=== PATIENT | female | born 1925 ===

== ENCOUNTER 2016-09-19 17:25 | Observation (INO) | payer MEDICARE ==
[2016-09-19 17:54] VITALS: BMI 24.9
--- NOTE | 2016-09-19 18:20 | ED PDOC ---
Arrival/HPI - General Historian: Patient, Family - History of Present Illness Time/Duration: Prior to Arrival Symptom Course: Unchanged <Andrew Parrish - Last Filed: 09/19/16 19:52> <JulietteIndia - Last Filed: 09/19/16 21:56> - General Chief Complaint: Shortness Of Breath Time Seen by Provider: 09/19/16 17:31 - History of Present Illness Narrative History of Present Illness (Text): 09/19/16 18:12 89 y/o female with hx afib (on coumadin), CHF, Parkinson's disease presenting with reports of shortness of breath. History is provided primarily by patient's daughter. Daughter states the patient started complaining of left ear pain today. Then later developed shortness of breath. Daughter reports patient was saying "I'm going to " repeatedly. Family denies fever, chills, cough, chest pain, diarrhea, nausea or vomiting. Daughter states patient is currently at her baseline mental status. Patient will respond to questions appropriately in Syrian using short one or 2 word responses. Daughter also reports frequent falls recently stating patient fell 2 days ago. Daughter denies significant injury or head trauma. Patient lives with her son who is her primary branch manager trainee. (Andrew Parrish) Past Medical History - Provider Review Nursing Documentation Reviewed: Yes - Past History Past History: Non-Contributing - Infectious Disease Hx of Infectious Diseases: None - Tetanus Immunization Tetanus Immunization: Unknown - Cardiac Hx Cardiac Disorders: Yes Hx Congestive Heart Failure: Yes - Pulmonary Hx Respiratory Disorders: No - Neurological Hx Neurological Disorder: Yes Hx Parkinson's Disease: Yes - HEENT Hx HEENT Disorder: Yes Hx Cataracts: Yes (had surgery 11 years ago (bilaterally)) - Renal Hx Renal Disorder: No - Endocrine/Metabolic Hx Endocrine Disorders: No - Hematological/Oncological Hx Blood Disorders: No - Integumentary Hx Dermatological Disorder: Yes (BILATERAL LE EDEMA +2WITH SPIDER VEINS) - Musculoskeletal/Rheumatological Hx Musculoskeletal Disorders: Yes Hx Falls: Yes Hx Fractures: Yes (WRIST FX) Hx Unsteady Gait: Yes (WHEELCHAIR) - Gastrointestinal Hx Gastrointestinal Disorders: No - Genitourinary/Gynecological Hx Genitourinary Disorders: No - Psychiatric Hx Psychophysiologic Disorder: No Hx Depression: No Hx Emotional Abuse: No Hx Physical Abuse: No Hx Substance Use: No - Anesthesia Hx Anesthesia: No - Suicidal Assessment Feels Threatened In Home Enviroment: No <Andrew Parrish - Last Filed: 09/19/16 19:52> Family/Social History - Physician Review Nursing Documentation Reviewed: Yes Family/Social History: Unknown Family HX Smoking Status: Never Smoked Hx Alcohol Use: No Hx Substance Use: No Hx Substance Use Treatment: No <FrancoisAndrew - Last Filed: 09/19/16 19:52> Allergies/Home Meds <FrancoisAndrew flores - Last Filed: 09/19/16 19:52> <JulietteIndia - Last Filed: 09/19/16 21:56> Allergies/Adverse Reactions: Allergies No Known Allergies Allergy (Verified 07/10/16 08:58) Home Medications: Home Meds Medication Instructions Recorded Confirmed Furosemide [Lasix] 40 mg PO BID 06/05/14 09/19/16 Digoxin 0.125 mcg PO DAILY 04/28/15 09/19/16 Potassium Chloride [K-Dur 20 mEq 1 tab PO DAILY 04/28/15 09/19/16 ER Tab] Warfarin [Coumadin] 2 mg PO 1800 05/28/15 09/19/16 Carbidopa/Levodopa 1 tab PO TID 04/17/16 09/19/16 [Carbidopa-Levodopa 25-100 Tab] Review of Systems - Physician Review All systems were reviewed & negative as marked: Yes - Review of Systems Constitutional: absent: Fevers, Night Sweats Eyes: Normal ENT: Normal, Other (left ear discomfort ). absent: Sore Throat, Rhinorrhea Respiratory: SOB. absent: Cough, Sputum, Wheezing Cardiovascular: Edema. absent: Chest Pain Gastrointestinal: absent: Abdominal Pain, Diarrhea, Nausea, Vomiting Genitourinary Female: Normal Musculoskeletal: absent: Back Pain, Neck Pain Skin: absent: Rash, Pruritis Neurological: absent: Headache, Dizziness Psychiatric: absent: Anxiety, Depression <Francois,Andrew - Last Filed: 09/19/16 19:52> Physical Exam Vital Signs Reviewed: Yes Temperature: Afebrile Blood Pressure: Normal Pulse: Regular Respiratory Rate: Normal Appearance: Positive for: Non-Toxic Mental Status: Positive for: other (resonds to questions apporporiately) - Systems Exam Head: Present: Atraumatic, Normocephalic Pupils: Present: PERRL Conjunctiva: Present: Normal Mouth: Present: Dry Neck: Present: Normal Range of Motion Respiratory/Chest: Present: Clear to Auscultation, Good Air Exchange. No: Accessory Muscle Use, Wheezes, Rales, Rhonchi Cardiovascular: Present: Normal S1, S2, Irregular Rhythm Abdomen: Present: Normal Bowel Sounds. No: Tenderness, Distention, Peritoneal Signs Upper Extremity: Present: Normal Inspection, Cyanosis. No: Edema Lower Extremity: Present: Normal Inspection. No: Edema Neurological: Present: Other (rigid extremities. resting tremor noted) Skin: Present: Warm, Dry Psychiatric: Present: Alert <Andrew Parrish - Last Filed: 09/19/16 19:52> Vital Signs Temp Pulse Resp BP Pulse Ox 09/19/16 20:30 79 18 136/70 99 09/19/16 20:29 98.8 F 09/19/16 19:55 128/74 09/19/16 17:44 96.4 F L 67 20 142/68 98 Medical Decision Making <Andrew Parrish - Last Filed: 09/19/16 19:52> - RAD Interpretation Director Motion Picture: ED Physician - EKG Interpretation Interpreted by ED Physician: Yes Type: 12 lead EKG Comparison: Similar to previous EKG <India Segovia - Last Filed: 09/19/16 21:56> ED Course and Treatment: 09/19/16 18:25 89 y/o female with hx afib, on coumadin, CHF, parkinson's presenting with respiratory distress and left ear discomfort. Patient is at baseline mental status. Due to hx Parkinson's patient is at risk of aspiration pneumonia vs CHF exacerbation - CBC - CMP - chest xray - EKG - blood cx, urine cx - UA - CT head due to recent falls while on coumadin 09/19/16 19:52 Lab results and radiology reviewed. Chest xray reveals an enlarged cardiac silhouette without significant pulmonary edema. Laboratory results reveal an elevated BNP. There is no leukocytosis. Troponin is intermediate, however patient has a hx of indeterminate levels. Will plan to admit the patient with CHF exacerbation with b/l LE edema and respiratory distress. (Andrew Parrsih) 09/19/16 21:46 Patient seen and examined with director medical economics. Patient examined at bedside by me with daughter present. Patient is at her baseline mental status as per family. She has earlier complained of left sided ear ache, severe, that has resolved. On exam, there is no facial pain on palpation, no mastoid tenderness, no angioedema or facial erythema or edema noted. Neck is supple. Family reports history of leg swelling starting three days ago. On my exam, patient with mild lower extremity edema. She has history of atrial fibrillation, rate is controlled. Chest xray with cardiomegaly, appears unchanged from previous. BNP elevated, in conjunction with leg edema, suspect component of CHF. IV lasix ordered, case d/w Dr West covering for PMD Dr. Gilmar Ozuna. Will admit to telemetry observation, consult with Dr. Almonte, her architectural project manager. With serial exams, no headache or focal neuro deficits. CT head unremarkable. Family reports recent history of frequent falls, but adamantly deny head injury. Patient taking Coumadin, no history of melena or active bleeding. Treatment plan reviewed with patient and family. Review of prior visits reveal patient with prior history of earache in past. Again no cranial nerve deficits or swelling or erythema noted. UA reviewed. Possible UTI noted. Urine culture sent. Will administer dose of IV antibiotics with admission to monitor patients INR. (India Segovia) - Lab Interpretations Lab Results: 09/19/16 18:30 09/19/16 18:30 Lab Results 09/19/16 19:15: Urine Color Yellow, Urine Appearance Sl cloudy, Urine pH 6.0, Ur Specific [place] 1.015, Urine Protein Negative, Urine Glucose (UA) Negative, Urine Ketones Negative, Urine Blood Trace-intact H, Urine Nitrate Negative, Urine Bilirubin Negative, Urine Urobilinogen 0.2, Ur Leukocyte Esterase Moderate H, Urine RBC 0 - 2, Urine WBC 10 - 15, Ur Epithelial Cells 3 - 4, Urine Bacteria Many 09/19/16 18:30: WBC 4.6, RBC 3.82, Hgb 10.4 L, Hct 33.9 L, MCV 88.7, MCH 27.2, MCHC 30.7 L, RDW 17.6 H, Plt Count 194, MPV 9.7, Gran % 61.9, Lymph % (Auto) 18.4 L, [place] % (Auto) 18.0 H, Eos % (Auto) 1.3 L, Baso % (Auto) 0.4, Gran # 2.85 , Lymph # 0.9 L, [place] # 0.8 H, Eos # 0.1, Baso # 0.02, PT 33.1 H*, INR 3.06 H, APTT 37.1 H, Sodium 133, Potassium 4.2, Chloride 93 L, Carbon Dioxide 29, Anion Gap 15, BUN 21, Creatinine 1.0, Est GFR ( Amer) > 60, Est GFR (Non-Af Amer) 52, Random Glucose 84, Calcium 9.0, Total Bilirubin 1.1, AST 39, ALT 10, Alkaline Phosphatase 89, Lactate Dehydrogenase 809 H, Total Creatine Kinase 280 H, CK-MB (CK-2) 15.9 H, CK-MB (CK-2) % 5.7 H, Troponin I 0.06, NT-Pro-B Natriuret Pep 2570 H, Total Protein 7.3, Albumin 3.8, Globulin 3.5, Albumin/ Globulin Ratio 1.1, Digoxin 1.6 - RAD Interpretation Narrative RAD Interpretations (Text): 09/19/16 21:50 cxr with cardiomegaly, no pneumothorax (India Segovia) Radiology Orders: 09/19/16 18:02 CHEST PORTABLE [RAD] Stat 09/19/16 18:05 HEAD W/O CONTRAST [CT] Stat - EKG Interpretation EKG Interpretation (Text): 09/19/16 21:49 EKG 17:40 atrial fibrillation, rate of 65, right ventricular hypertrophy, anteroseptal infaarct, age undetermined (India Segovia) - Medication Orders Current Medication Orders: Ceftriaxone Sodium (Rocephin 1 Gram Ivpb) 100 mls @ 200 mls/hr IVPB ONCE STA PRN Reason: Protocol Stop: 09/19/16 22:22 Discontinued Medications Furosemide (Lasix) 40 mg IVP ONCE ONE Stop: 09/19/16 19:44 Last Admin: 09/19/16 19:55 Dose: 40 MG MAR Blood Pressure Document 09/19/16 19:55 PRATIBHA (Rec: 09/19/16 19:55 PRATIBHA [id number]) Blood Pressure Blood Pressure (100/60-150/90 mm Hg) 128/74 IVP Administration Document 09/19/16 19:55 PRATIBHA (Rec: 09/19/16 19:55 PRATIBHA [id number]) Charges for Administration # of IVP Administrations 1 - PA / BRATTICE BUILDER / Resident Statement MD/ has reviewed & agrees with the documentation as recorded. / has examined the patient and agrees with the treatment plan. <India Segovia - Last Filed: 09/19/16 21:56> Disposition/Present on Arrival - Present on Arrival Any Indicators Present on Arrival: No History of DVT/PE: No History of Uncontrolled Diabetes: No Urinary Catheter: No History of Decub. Ulcer: No History Surgical Site Infection Following: None - Disposition Have Diagnosis and Disposition been Completed?: Yes Disposition Time: 19:55 Patient Plan: Admission <Andrew Parrish - Last Filed: 09/19/16 19:52> - Present on Arrival Any Indicators Present on Arrival: No - Disposition Have Diagnosis and Disposition been Completed?: Yes Patient Plan: Admission <India Segovia - Last Filed: 09/19/16 21:56> - Disposition Diagnosis: CHF (congestive heart failure), Earache, UTI (urinary tract infection) Disposition: HOSPITALIZED Patient Problems: Current Active Problems Problem Status Diagnosed CHF (congestive heart failure) Acute Earache Acute UTI (urinary tract infection) Acute Condition: FAIR
[2016-09-19 18:59] LABS: ADD MANUAL DIFF? NO
[2016-09-19 19:11] LABS: BASO # 0.02 [, K/mm3] (0.0-2.0); BASO % 0.4 % (0.0-3.0); EOS # 0.1 (0.0-0.7); EOS % 1.3 % (1.5-5.0); GRAN # 2.85 (1.4-6.5); GRAN % 61.9 % (50.0-68.0); HEMATOCRIT 33.9 % (36.0-48.0); LYMPH # 0.9 (1.2-3.4); LYMPH % 18.4 % (22.0-35.0); MEAN CELL VOLUME 88.7 fL (80.0-105.0); MEAN CORPUSCULAR HEMOGLOBIN 27.2 pg (25.0-35.0); MEAN CORPUSCULAR HGB CONC 30.7 g/dl (31.0-37.0); MEAN PLATELET VOLUME 9.7 fl (7.0-11.0); MONO # 0.8 (0.1-0.6); PLATELET COUNT 194 [, 10^3/uL] (120.0-450.0); RED CELL DISTRIBUTION WIDTH 17.6 % (11.5-14.5); WHITE BLOOD COUNT 4.6 [, 10^3/ul] (4.5-11.0)
[2016-09-19 19:16] LABS: ALB/GLOB RATIO 1.1 (1.1-1.8); ALKALINE PHOSPHATASE 89 U/L (38-133); ALT/SGPT 10 U/L (7-56); AST/SGOT 39 U/L (15-39); BILIRUBIN,TOTAL 1.1 mg/dL (0.2-1.3); BLOOD UREA NITROGEN 21 mg/dL (7-21); CARBON DIOXIDE 29 mmol/L (21-33); CHLORIDE 93 mmol/L (98-107); GFR AFRICAN-AMERICAN > 60; GLUCOSE,RANDOM 84 mg/dL (70-110); POTASSIUM 4.2 mmol/L (3.6-5.0); SODIUM 133 mmol/L (132-148); TOTAL PROTEIN 7.3 g/dL (5.8-8.3)
[2016-09-19 19:18] LABS: INR 3.06 (0.93-1.08); PARTIAL THROMBOPLASTIN TIME 37.1 Seconds (23.7-30.8)
[2016-09-19 19:27] LABS: TROPONIN I 0.06 ng/mL
[2016-09-19 19:34] LABS: URINE BILIRUBIN NEGATIVE (NEGATIVE); URINE BLOOD TRACE-INTACT (NEGATIVE); URINE GLUCOSE (UA) NEGATIVE (NEGATIVE); URINE KETONE NEGATIVE (NEGATIVE); URINE LEUKOCYTE ESTERASE MODERATE Leu/uL (NEGATIVE); URINE PROTEIN NEGATIVE mg/dL (<30 mg/dL); URINE UROBILINOGEN 0.2 E.U./dL (<1 E.U./dL)
[2016-09-19 19:35] LABS: URINE APPEARANCE SL CLOUDY (CLEAR); URINE COLOR YELLOW (YELLOW)
[2016-09-19 19:40] LABS: URINE BACTERIA MANY (NEG); URINE RBC 0 - 2 /hpf (0-2)
--- NOTE | 2016-09-19 20:01 | CT ---
EXAM: CT Head Without Intravenous Contrast. CLINICAL HISTORY: 89 years old, female; Injury or trauma; Fall; Initial encounter; Concussion / head injury; Additional info: Recent fall, on coumadin TECHNIQUE: Axial computed tomography images of the head/brain without intravenous contrast. This CT exam was performed using one or more of the following dose reduction techniques: automated exposure control, adjustment of the mA and/or kV according to patient size, and/or use of iterative reconstruction technique. EXAM DATE/TIME: 09/19/2016 6:05 PM COMPARISON: CT - HEAD W/O CONTRAST 02/24/2012 6:12:31 PM FINDINGS: Artifacts: Streak artifact degrades image quality. Motion artifact degrades image quality. Brain: There is dilatation of sulci gyri and ventricles. There is no midline shift. There is decreased attenuation in periventricular white matter. There are no focal masses. There are no focal hemorrhages. Segura-white differentiation is visualized. Ventricles: See above. Bones: Cranial vault is intact. Soft tissues: unremarkable Sinuses: There is no acute sinusitis. Ears and mastoids: Middle ears and mastoids are unremarkable. Orbits: Orbital contents are unremarkable. IMPRESSION: Slightly limited by streak and motion, atrophy and small vessel disease, no acute intracranial abnormality
[2016-09-19 21:32] VITALS: O2SAT 99
[2016-09-19] MEDS ORDERED: cefTRIAXone 1 gm 100 ML IVPB STA (21:53)
--- NOTE | 2016-09-20 07:59 | RAD ---
HISTORY: sob COMPARISON: 07/09/2015 FINDINGS: LUNGS: No active pulmonary disease. PLEURA: No significant pleural effusion identified, no pneumothorax apparent. CARDIOVASCULAR: Severe cardiomegaly. No congestive change. OSSEOUS STRUCTURES: No significant abnormalities. VISUALIZED UPPER ABDOMEN: Normal. OTHER FINDINGS: None. IMPRESSION: Severe cardiomegaly. No infiltrate.
[2016-09-20] MEDS ORDERED: Potassium Chloride 20 mEq ER Tab PO SCH (10:00)
[2016-09-20] MEDS: cefTRIAXone 1 gm 100 ML IVPB SCH (10:26)
[2016-09-20 10:36] LABS: ALB/GLOB RATIO 1.1 (1.1-1.8); BILIRUBIN,TOTAL 1.4 mg/dL (0.2-1.3); CALCIUM 9.2 mg/dL (8.4-10.5); TOTAL PROTEIN 7.2 g/dL (5.8-8.3)
--- NOTE | 2016-09-20 11:25 | HP ---
I know the patient very well from house calls and being in the office. I know the family very well. I am here in room 263 with the family and the patient. She is looking at me and she is smiling, a little bit distress. She is an 89-year-old white female who complained of left ear pain and shortness of breath. She was saying she was going to repeatedly. She is having breathing issues, got short of breath. They took her to the Emergency Room. She has a past medical history of AFib on Coumadin, CHF, Parkinson's. She is very weak, very limited mobility. She gets moved from the chair to bed with family helping her. She can stand, maybe pivot. That is about her baseline. She had cataract surgery. She has had bilateral swelling of lower extremities with spider veins. She has fallen. She has broken her wrist. She is basically wheelchair to bedridden, but she is comfortable right now. After giving her a dose of Lasix IV in the Emergency Room she is better, but still talking and breathing coarse breath sounds at this time. She never smoked. No alcohol, no drugs. No known drug allergies. She is on Lasix 40 twice a day, digoxin 0.125 daily, potassium 20 daily, Sinemet 25/100 one tablet 3 times a day for the Parkinson's. REVIEW OF SYSTEMS: No acute vision or hearing loss. She does respond, but slowly; that is from the Parkinson's. She is alert, she is smiling. She knows her address. She is pretty with it for 89 years of age. No throat issues. She tells me the left ear has been hurting her. It is better now, after the Rocephin in the Emergency Room. There was shortness of breath, and coughing, and some wheezing. There was also a lot of swelling in both lower extremities. No nausea, vomiting, constipation, diarrhea. No problems urinating. She is incontinent. No back pain or leg pain. She is stiff in all extremities, and can stand. It has been that way for a while. Cannot walk. No headache, no dizziness. A little anxious, not depressed. That is her baseline. She has a 98.8 temp, 79 pulse, 18 respiratory rate, 136/70 blood pressure, 99% O2 sat on room air. HEAD: Atraumatic, normocephalic. Eyes are open. Pupils equal, reactive to light, extraocular muscles are intact. Throat is moist. She is smiling. NECK: Supple. HEART: Regular rate, normal S1 and S2, irregular rhythm on and off. LUNGS: Decreased breath sounds. There are some coarse breath sounds. It sounds like rales, but changes with cough. ABDOMEN: Soft, nontender, positive bowel sounds. EXTREMITIES: Have trace edema. I understand there was edema in the Emergency Room in the extremities. That is where she gets it. I am not sure if they were giving her the Lasix twice a day. Sometimes they change the medicine around because she urinates too much, and it is possible that they held it for a few days, and that is why she swelled up. They have done that before. Cranial nerves II-XII grossly intact. She is slow to respond due to her Parkinson's. Rigid extremities. Thyroid midline, no palpable lymphadenopathy. She had multiple tests. She has a white count of 4.6, hemoglobin , hematocrit 33.9, platelets of 194. INR is 3.06. A 133 sodium, potassium is 4.2, BUN 21, creatinine 1. GFR is 52. Sugar is 84. Calcium is 9, total bili is 1.1. AST is 39, ALT is 10, alk phos is 89, lactic dehydrogenase is 809, total creatinine kinase is 280. Troponin-I of 0.06. BNP is 22,570, total protein 7.3. Urine has moderate leukocytes and many bacteria, and she has a digoxin of 1.6. Chest x-ray is pending. CAT scan of the head showed nothing acute. She is here for congestive heart failure, urinary tract infection, left ear pain. I called in Dr. Almonte, the retouching operator. He knows her. I put her back on her Lasix twice a day, but made it IV. I think she does better with IV diuresis than p.o. I am hoping she will get better quickly. She is in observation right now. I am hoping we can possibly get her discharged later today. If not , will make her an inpatient and work to get her out in the next day or two. Get her out of bed to chair, and hopefully she will improve in a short period of time. I will see what the retouching operator has to say this morning. Continue to diurese her, but she is better than yesterday in the ER. The patient is here for acute CHF, urinary tract infection, left ear pain, and also history of Parkinson's. Scotty Ozuna DO cc: [id number] TT: 09/20/2016 11:25:06 jn MTDD
--- NOTE | 2016-09-20 12:28 | CON ---
DATE: 09/20/2016 HISTORY OF PRESENT ILLNESS: The patient is an 89-year-old woman who presents with pedal edema and dy spnea. PAST MEDICAL HISTORY: Notable for documented moderate to severe pulmonary hypertension in 2013. She denies history of smoking. The patient underwent a stress test earlier this year, in which the ejection fraction was normal with no ischemic changes on nuclear scan. The patient has chronic atrial fibrillation, in which she has been treated with Coumadin. The patient denies chest pain. SOCIAL HISTORY: No smoking history. REVIEW OF SYSTEMS: A 14-point was reviewed. Dyspnea as well as pedal edema are her predominant symp toms. PHYSICAL EXAMINATION: VITAL SIGNS: Blood pressure is 160/90. The heart rate is in the 90s, atrial fibrillation. NECK: Negative JVD. LUNGS: Without rales. HEART: Revealed S1, S2. EXTREMITIES: Decreasing edema since her legs have been elevated. EKG shows poor R-wave progressions across the anterior precordium with low voltages consistent with C OPD. LABORATORIES: Reveal a troponin of 0.06. The ProBNP is 2570 with a hemoglobin of 10.4. Her chest x -ray is consistent with vascular congestion. IMPRESSION: 1. Moderate to severe pulmonary hypertension. 2. Pedal edema, secondary to pulmonary hypertension. 3. No evidence for left ventricular systolic dysfunction. 4. Atrial fibrillation with an adequate INR. Given these findings, we will repeat an echocardiogram to evaluate heart size and to remeasure her pu lmonary hypertension. I agree with Carla to help diurese her lower extremities. Linwood Almonte MD cc: [id number] TT: 09/20/2016 12:27:06 Confirmation # [id number] Dictation # [id number]
[2016-09-20] MEDS: Digoxin 125 mcg (0.125 mg) Tab PO SCH (15:24)
--- NOTE | 2016-09-20 17:57 | CARD ---
APPROVED REPORT EXAM: Two-dimensional and M-mode echocardiogram with Doppler and color Doppler. INDICATION Pulmonary Hypertention 2D DIMENSIONS Left Atrium (2D)3.5 (1.6-4.0cm)IVSd0.9 (0.7-1.1cm) LVDd4.6 (3.9-5.9cm)PWd1.3 (0.7-1.1cm) LVDs2.6 (2.5-4.0cm)FS (%) 43.0 % LVEF (%)74.2 (>50%) M-Mode DIMENSIONS Aortic Root2.90 (2.2-3.7cm)Aortic Cusp Exc.1.80 (1.5-2.0cm) Aortic Valve AoV Peak Vpaevxds159.0cm/Allison Peak GR.16mmHg Mitral Valve E/A ratio0.0 TDI E/Lateral E'0.0E/Medial E'0.0 Tricuspid Valve TR Peak [id number] [id number] Peak Gr.51mmHg [id number] LEFT VENTRICLE The left ventricle is normal size. There is normal left ventricular wall thickness. The left ventricular ejection fraction is within the normal range. There is a flattened septum RIGHT VENTRICLE The right ventricle is moderately dilated. There is normal right ventricular wall thickness. RV Systolic function is severely reduced. ATRIA The left atrium size is normal. Enormously dilated right atrium AORTIC VALVE The aortic valve is mildly sclerotic. There is mild aortic regurgitation. TRICUSPID VALVE There is severe tricuspid regurgitation. There is severe pulmonary hypertension. GREAT VESSELS The IVC is plethoric. PERICARDIAL EFFUSION There is a trace circumferential pericardial effusion. <Conclusion> The left ventricle is normal size. The left ventricular ejection fraction is within the normal range. There is a flattened septum The right ventricle is moderately dilated. RV Systolic function is severely reduced. Enormously dilated right atrium There is severe tricuspid regurgitation. There is severe pulmonary hypertension. There is mild aortic regurgitation.
--- NOTE | 2016-09-20 18:43 | CARD ---
APPROVED REPORT EKG Measurement Heart [id number] <Conclusion> Atrial fibrillation Right superior axis deviation Right ventricular hypertrophy Anteroseptal infarct, age undetermined Abnormal ECG
[2016-09-21 07:06] LABS: HEMATOCRIT 35.4 % (36.0-48.0); MEAN CELL VOLUME 89.2 fL (80.0-105.0); MEAN CORPUSCULAR HEMOGLOBIN 26.4 pg (25.0-35.0); MEAN CORPUSCULAR HGB CONC 29.7 g/dl (31.0-37.0); MEAN PLATELET VOLUME 9.9 fl (7.0-11.0); RED CELL DISTRIBUTION WIDTH 17.5 % (11.5-14.5); WHITE BLOOD COUNT 6.3 [, 10^3/ul] (4.5-11.0)
[2016-09-21 07:17] LABS: INR 2.46 (0.93-1.08)
--- NOTE | 2016-09-21 09:02 | PN ---
DATE: 09/21/2016 The patient is sitting in a chair without shortness of breath. Her predominant symptoms are dementia as well as Parkinson's. PHYSICAL EXAMINATION: VITAL SIGNS: Blood pressure is 137/85, the heart rate is in the 60s, atrial fibrillation. NECK: Negative JVD. LUNGS: Without rales. HEART: Reveals S1, S2. EXTREMITIES: Decreasing edema. LABORATORY DATA: Potassium is 5.0, BUN and creatinine is 23 and 1.2. Hemoglobin is 10.5. Echocardiogram reveals good LV function with moderate to severe pulmonary hypertension. IMPRESSION: 1. Pedal edema secondary to #2. 2. Pulmonary hypertension. 3. Parkinson's. 4. Dyspnea secondary to pulmonary hypertension. PLAN: 1. Given these findings, we will decrease her potassium dosage. 2. We will continue her Coumadin for atrial fibrillation. 3. We will decrease her Lasix to 40 once a day. No further cardiac workup is necessary at this time . Linwood Almonte MD cc: [id number] TT: 09/21/2016 09:01:01 Confirmation # [id number] Dictation # [id number] tn
[2016-09-21] MEDS: cefTRIAXone 1 gm 100 ML IVPB SCH (09:31)
[2016-09-21 12:51] VITALS: BP 138/76; PULSE 61; RESP 19; TEMP 98
[2016-09-21] MEDS: Digoxin 125 mcg (0.125 mg) Tab PO SCH (14:43)
[2016-09-21 14:48] VITALS: PULSE 61
--- NOTE | 2016-09-21 15:55 | DS ---
I saw the patient in her room with her . She is resting comfortably in bed. She ate well for breakfast. Her legs are less swollen. The is concerned about her but this is really her ba fara, he has been away for a long time on vacation, over a month. She is on Coumadin, Lanoxin, Las ix, Sinemet and Rocephin. I will change Rocephin to Cipro, that it is sensitive to on the urine. PHYSICAL EXAMINATION: VITAL SIGNS: 98.6 temp, 63 pulse, 130/68 blood pressure, 20 respiratory rate, 99% O2 sat on room air . HEENT: Head is atraumatic, normocephalic. Throat is moist. NECK: Supple. HEART: Regular rate. LUNGS: Decreased breath sounds but clear. ABDOMEN: Soft. EXTREMITIES: Mildly contracted, no edema at this time. There was edema when she came in, so today i s a good day for her to be discharged. LABORATORY DATA: She has a 6.3 white count, 10.5 hemoglobin, 35.4 hematocrit with 195 platelets. IN R is 2.46 138 sodium, potassium is 5, BUN 20, creatinine 1.2, GFR is 42. Sugar is 105. Calcium is 9 .2, total bili is 1.4, AST is 46, ALT is 88, total protein 7.2. Urine is moderate leukocytes, many b acteria. She was on Rocephin, now she will be on Cipro. Her digoxin level was 1.6. I discussed this with the at length, he understands she is going to go home and the medications she will be on. She h as pulmonary hypertension. She did have pedal edema secondary to that, Parkinson's and urinary tract infection. I will see her in week, possibly on a house call; if we cannot, bring her to the office. Scotty Ozuna DO cc: [id number] TT: 09/21/2016 15:54:29 jn
== END 2016-09-21 15:42 | disposition home or self-care (01) ==
LOC: ED 17:25 → ERH 20:09 → 2RNO 22:18
PROVIDERS: ADMIT Family Medicine; ATTEND Family Medicine
DX: I27.2 Other secondary pulmonary hypertension (principal); N39.0 Urinary tract infection, site not specified; I50.9 Heart failure, unspecified; H92.02 Otalgia, left ear; G20 Parkinson's disease; F02.80 Dementia in other diseases classified elsewhere, unspecified severity, without behavioral disturbance, psychotic disturbance, mood disturbance, and anxiety; I48.2 Chronic atrial fibrillation; Z79.01 Long term (current) use of anticoagulants; R29.6 Repeated falls
CPT/HCPCS: 36415; 70450; 71010; 80053; 80162; 81001; 82550; 82553; 83615; 83880; 84484; 85025; 85027; 85610; 85730; 87040; 87086; 87181; 93005; 93306; 96365; 96366; 96375; 99285; G0378; J0696; J1940

== ENCOUNTER 2016-10-28 08:31 | Observation (INO) | payer MEDICARE ==
[2016-10-28 08:56] VITALS: BMI 19.5
[2016-10-28 09:34] LABS: ADD MANUAL DIFF? NO
[2016-10-28 09:44] LABS: BASO # 0.04 K/mm3 (0.0-2.0); BASO % 0.6 % (0.0-3.0); EOS # 0.1 (0.0-0.7); EOS % 1.1 % (1.5-5.0); GRAN # 3.78 (1.4-6.5); GRAN % 59.3 % (50.0-68.0); HEMATOCRIT 33.6 % (36.0-48.0); LYMPH # 1.4 (1.2-3.4); MEAN CELL VOLUME 86.2 fL (80.0-105.0); MEAN CORPUSCULAR HEMOGLOBIN 26.7 pg (25.0-35.0); MEAN PLATELET VOLUME 9.4 fl (7.0-11.0); MONO # 1.1 (0.1-0.6); PLATELET COUNT 179 10^3/uL (120.0-450.0); RED CELL DISTRIBUTION WIDTH 17.3 % (11.5-14.5); WHITE BLOOD COUNT 6.4 10^3/ul (4.5-11.0)
[2016-10-28 09:52] LABS: ALB/GLOB RATIO 1.1 (1.1-1.8); BILIRUBIN,TOTAL 1.7 mg/dL (0.2-1.3); CALCIUM 9.1 mg/dL (8.4-10.5); POTASSIUM 4.8 mmol/L (3.6-5.0); TOTAL PROTEIN 7.4 g/dL (5.8-8.3)
--- NOTE | 2016-10-28 09:59 | ED PDOC ---
Arrival/HPI - General Chief Complaint: Lower Extremity Problem/Injury Time Seen by Provider: 10/28/16 09:22 Historian: Family - History of Present Illness Narrative History of Present Illness (Text): 10/28/16 09:56 89-year-old female with a history of Parkinson's, dementia, difficulty ambulating, presents emergency Department with one-week duration worsening bilateral lower extremity swelling and some dyspnea on exertion. Patient's son is a historian, states that she also has a history of heart disease and this has happened to her in the past. States that mother denies any chest pain. No other complaints. Time/Duration: 1 week Symptom Onset: Sudden Symptom Course: Unchanged Activities at Onset: Rest Modifying Factors (Text): none Context: Home Associated Symptoms (Text): none Past Medical History - Provider Review Nursing Documentation Reviewed: Yes - Past History Past History: Non-Contributing - Infectious Disease Hx of Infectious Diseases: None - Tetanus Immunization Tetanus Immunization: Unknown - Cardiac Hx Cardiac Disorders: Yes Hx Congestive Heart Failure: Yes - Pulmonary Hx Respiratory Disorders: No - Neurological Hx Neurological Disorder: Yes Hx Parkinson's Disease: Yes - HEENT Hx HEENT Disorder: Yes Hx Cataracts: Yes (had surgery 11 years ago (bilaterally)) - Renal Hx Renal Disorder: No - Endocrine/Metabolic Hx Endocrine Disorders: No - Hematological/Oncological Hx Blood Disorders: No - Integumentary Hx Dermatological Disorder: Yes (BILATERAL LE EDEMA +2WITH SPIDER VEINS) - Musculoskeletal/Rheumatological Hx Musculoskeletal Disorders: Yes Hx Falls: Yes Hx Fractures: Yes (WRIST FX) Hx Unsteady Gait: Yes (WHEELCHAIR) - Gastrointestinal Hx Gastrointestinal Disorders: No - Genitourinary/Gynecological Hx Genitourinary Disorders: No - Psychiatric Hx Psychophysiologic Disorder: No Hx Depression: No Hx Emotional Abuse: No Hx Physical Abuse: No Hx Substance Use: No - Anesthesia Hx Anesthesia: No - Suicidal Assessment Feels Threatened In Home Enviroment: No Family/Social History - Physician Review Nursing Documentation Reviewed: Yes Family/Social History: No Known Family HX Smoking Status: Never Smoked Hx Alcohol Use: No Hx Substance Use: No Hx Substance Use Treatment: No Allergies/Home Meds Allergies/Adverse Reactions: Allergies No Known Allergies Allergy (Verified 10/28/16 08:56) Home Medications: Home Meds Medication Instructions Recorded Confirmed Furosemide [Lasix] 40 mg PO BID 06/05/14 10/28/16 Digoxin 0.125 mcg PO DAILY 04/28/15 10/28/16 Potassium Chloride [K-Dur 20 mEq 1 tab PO DAILY 04/28/15 10/28/16 ER Tab] Warfarin [Coumadin] 1 mg PO 1800 05/28/15 10/28/16 Carbidopa/Levodopa 1 tab PO TID 04/17/16 10/28/16 [Carbidopa-Levodopa 25-100 Tab] Review of Systems - Physician Review All systems were reviewed & negative as marked: Yes - Review of Systems Systems not reviewed;Unavailable: Dementia Physical Exam Vital Signs Reviewed: Yes Vital Signs Temp Pulse Resp BP Pulse Ox 10/28/16 11:35 78 149/83 95 10/28/16 11:16 69 18 142/79 95 10/28/16 09:45 73 17 144/89 95 10/28/16 09:10 98.3 F 78 21 149/99 H 94 L Temperature: Afebrile Blood Pressure: Hypertensive Pulse: Regular Respiratory Rate: Normal Appearance: Positive for: Uncomfortable Pain Distress: None Mental Status: No: Agitated, Lethargic - Systems Exam Head: Present: Atraumatic, Normocephalic Pupils: Present: PERRL Extroacular Muscles: Present: EOMI Conjunctiva: Present: Normal Mouth: Present: Moist Mucous Membranes Neck: Present: Normal Range of Motion. No: Meningeal Signs, MIDLINE TENDERNESS Respiratory/Chest: Present: Clear to Auscultation, Good Air Exchange. No: Respiratory Distress, Accessory Muscle Use Cardiovascular: Present: Regular Rate and Rhythm, Normal S1, S2. No: Murmurs Abdomen: Present: Normal Bowel Sounds. No: Tenderness, Distention, Peritoneal Signs, Rebound, Guarding Back: Present: Normal Inspection Upper Extremity: Present: Other (LUE tremor). No: Cyanosis, Edema Lower Extremity: Present: Edema (b/l LE edema, no assymetry, no tenderness to palpation), Swelling. No: Tenderness Neurological: Present: GCS=15, Speech Normal, Other (no focal neurological deficits) Skin: Present: Warm, Dry, Normal Color. No: Rashes Psychiatric: Present: Alert. No: Anxious, Agitated Medical Decision Making ED Course and Treatment: Impression: 89-year-old female with bilateral lower extremity swelling and dyspnea and exertion. Patient has bilateral pedal edema on exam. Differential Diagnosis include but are not limited to: CHF versus peripheral vascular disease Plan: -- EKG -- Chest Xray -- US lower extremity vein bilat -- labs -- Lasix -- Reassess and disposition Prior Visits: Notes and results from previous visits were reviewed. Patient last seen in the ED on Progress Notes: EKG: EKG shows atrial fibrillation, irregular, rate controlled, 75 bpm. Interpreted by me. Chest xray: Creator : Carson Lira MD IMPRESSION: Severe cardiomegaly US lower extremity vein bilat: dw [facility], states neg. DVT b/l 10/28/16 11:[address] Scotty Ozuna, agrees with tele admission to his service pt's family aware of and agree with plan pt in no resp distress at this time - Lab Interpretations Lab Results: 10/28/16 09:26 10/28/16 09:26 Lab Results 10/28/16 09:26: Sodium 138, Potassium 4.8, Chloride 95 L, Carbon Dioxide 33, Anion Gap 15, BUN 30 H, Creatinine 1.3, Est GFR ( Amer) 47, Est GFR (Non- Af Amer) 39, Random Glucose 90, Calcium 9.1, Total Bilirubin 1.7 H, AST 37, ALT 30, Alkaline Phosphatase 92, Lactate Dehydrogenase 817 H, Total Creatine Kinase 226, Troponin I 0.10 D, NT-Pro-B Natriuret Pep 4140 H, Total Protein 7.4, Albumin 3.9, Globulin 3.5, Albumin/Globulin Ratio 1.1 10/28/16 09:26: PT 40.7 H*, INR 3.77 H*, APTT 40.2 H 10/28/16 09:26: WBC 6.4, RBC 3.90, Hgb 10.4 L, Hct 33.6 L, MCV 86.2, MCH 26.7, MCHC 31.0, RDW 17.3 H, Plt Count 179, MPV 9.4, Gran % 59.3, Lymph % (Auto) 22.0 , [place] % (Auto) 17.0 H, Eos % (Auto) 1.1 L, Baso % (Auto) 0.6, Gran # 3.78, Lymph # 1.4, [place] # 1.1 H, Eos # 0.1, Baso # 0.04 I have reviewed the lab results: Yes - RAD Interpretation Radiology Orders: 10/28/16 09:23 CHEST PORTABLE [RAD] Stat 10/28/16 09:24 DUPLEX LOWER EXTRM VEIN BILAT [US] Stat - EKG Interpretation Interpreted by ED Physician: Yes Type: 12 lead EKG - Medication Orders Current Medication Orders: Discontinued Medications Aspirin (Aspirin Chewable) 324 mg PO STAT STA Stop: 10/28/16 09:27 Last Admin: 10/28/16 09:48 Dose: 324 mg Furosemide (Lasix) 40 mg IVP STAT STA Stop: 10/28/16 09:27 Last Admin: 10/28/16 09:48 Dose: 40 mg Nitroglycerin (Nitrostat Sl Tab) 0.3 mg SL STAT STA Stop: 10/28/16 11:07 Last Admin: 10/28/16 11:35 Dose: 0.3 mg - Scribe Statement The provider has reviewed the documentation as recorded by the Scribe Jamaal Mei All medical record entries made by the Stefanyibtianna were at my direction and personally dictated by me. I have reviewed the chart and agree that the record accurately reflects my personal performance of the history, physical exam, medical decision making, and the department course for this patient. I have also personally directed, reviewed, and agree with the discharge instructions and disposition. Disposition/Present on Arrival - Present on Arrival Any Indicators Present on Arrival: No History of DVT/PE: No History of Uncontrolled Diabetes: No Urinary Catheter: No History of Decub. Ulcer: No History Surgical Site Infection Following: None - Disposition Have Diagnosis and Disposition been Completed?: Yes Diagnosis: CHF (congestive heart failure) Disposition: HOSPITALIZED Disposition Time: 11:39 Patient Plan: Admission Condition: FAIR Discharge Instructions (ExitCare): Heart Failure (ED) Referrals: Scotty Ozuna DO [Primary Care Provider] - Follow up with primary
[2016-10-28 10:01] LABS: PARTIAL THROMBOPLASTIN TIME 40.2 Seconds (23.7-30.8)
[2016-10-28 10:04] LABS: TROPONIN I 0.1 ng/mL
[2016-10-28 10:06] LABS: INR 3.77 (0.93-1.08)
--- NOTE | 2016-10-28 10:57 | RAD ---
HISTORY: cough COMPARISON: 09/19/2016 FINDINGS: LUNGS: No active pulmonary disease. PLEURA: No significant pleural effusion identified, no pneumothorax apparent. CARDIOVASCULAR: Severe cardiomegaly OSSEOUS STRUCTURES: No significant abnormalities. VISUALIZED UPPER ABDOMEN: Normal. OTHER FINDINGS: None. IMPRESSION: Severe cardiomegaly
--- NOTE | 2016-10-28 13:16 | HP ---
I know the patient very well from house calls and office visits. I know the family very well also. I was called down to the Emergency Room by the Emergency Room doctor. She comes in with shortness of breath and lower extremity edema, having problems with her outpatient IV Lasix. I know they are giv ing it to her. It could be a generic version, not the brand name. She is an 89-year-old female with 2-3 days of worsening lower extremity edema and also getting more s luggish and less strength. PAST MEDICAL HISTORY: CHF, Parkinson dementia and Parkinson disease, difficulty ambulating, almost b edridden. Her legs are now very swollen. She had cataracts done. She has spider veins with bilater al edema, falls, wrist fracture. She is wheelchair bound to chair bound. She has to be picked up to move from one to the other. FAMILY HISTORY: Hypertension in the family. No smoking, no drinking, no drugs. ALLERGIES: No known drug allergies. She takes Lasix, digoxin, potassium, Coumadin, and Sinemet. No acute vision or hearing changes, no apparent sore throat. There is no neck pain, no chest pain, n o palpitation, but the shortness of breath. No abdominal pain, nausea, vomiting, constipation. Ther e is edema of both lower extremities. PHYSICAL EXAMINATION: VITAL SIGNS: She has a 98.3 temp, 78 pulse, 21 respiratory rate, 149/99 blood pressure, 94% O2 sat o n room air. GENERAL: She is alert. Eyes are open. She smiled when she saw me, not talking much now. HEENT: Head is atraumatic, normocephalic. Extraocular muscles are intact. Pupils equal, reactive t o light. Throat is moist, no erythema. NECK: Supple, no JVD. HEART: Regular rate. Normal S1, S2. LUNGS: Have decreased breath sounds bilaterally, poor inspiration. EXTREMITIES: She has +2 to 3 pitting edema bilateral lower extremities with spider veins. NEUROLOGIC: GCS is 15. Speech is normal. SKIN: Intact. PSYCHIATRIC: She is alert. She has severe cardiomegaly on chest x-ray. She has a 138 sodium, potassium 4.8, BUN 30, creatinine 1.3, GFR is 39, calcium is 9.1, sugar is 90. Total bilirubin is 1.7, AST is 37, ALT is 30, alkaline phosphatase 92. Lactic dehydrogenase is 817. Troponin 0.1. BNP is 4140, extremely high. Total pro tein 7.4. INR is 3.77. We will hold the Coumadin. WBCs of 6.4, hemoglobin 10.4, hematocrit 33.6, p latelets of 179. Extremity ultrasound is pending. She will be put on IV Lasix 40 b.i.d. She will get physical therapy, digoxin, aspirin, her Sinemet. I will consult cardiology. Hopefully, she will improve and will diurese, so I put a Howell catheter in. Hopefully, she will improve with acute congestive heart failure. I will give her oxygen. The p alfreda has acute congestive heart failure. Scotty Ozuna DO cc: [id number] TT: 10/28/2016 13:16:25 en
--- NOTE | 2016-10-28 15:34 | CARD ---
APPROVED REPORT EKG Measurement Heart [id number] <Conclusion> Atrial fibrillation Right superior axis deviation Right ventricular hypertrophy Anteroseptal infarct, age undetermined Abnormal ECG
--- NOTE | 2016-10-28 16:07 | US ---
HISTORY: Leg pain and swelling. Evaluate for DVT PHYSICIAN(S): Linwood Carbone MD. TECHNIQUE: Duplex sonography and color-flow Doppler with graded compression were used to evaluate the deep venous systems of both lower extremities. The exam is somewhat limited by edema FINDINGS: The visualized deep venous systems of both lower extremities are sonographically normal and compressible. Normal wave forms and augmentation are seen. There is no sonographic evidence for deep venous thrombosis in the visualized segments of both lower extremities. IMPRESSION: No sonographic evidence for deep venous thrombosis in the visualized segments of both lower extremities.
[2016-10-28] MEDS ORDERED: Pneumococcal 23-Valent Vaccine IM ONE (16:55)
[2016-10-29 07:12] LABS: HEMATOCRIT 33.3 % (36.0-48.0); MEAN CELL VOLUME 86.5 fL (80.0-105.0); MEAN PLATELET VOLUME 9.5 fl (7.0-11.0); RED CELL DISTRIBUTION WIDTH 17.4 % (11.5-14.5); WHITE BLOOD COUNT 5.5 10^3/ul (4.5-11.0)
[2016-10-29 07:26] LABS: INR 4.81 (0.93-1.08)
[2016-10-29 07:36] LABS: ALB/GLOB RATIO 1.2 (1.1-1.8); BILIRUBIN,TOTAL 2.3 mg/dL (0.2-1.3); POTASSIUM 4.5 mmol/L (3.6-5.0); TOTAL PROTEIN 7.2 g/dL (5.8-8.3)
[2016-10-29] MEDS ORDERED: Phytonadione 10 mg/ml Inj (Adult) SC ONE (07:56)
[2016-10-29] MEDS: Potassium Chloride 20 mEq ER Tab PO SCH (09:25)
[2016-10-29] MEDS: Digoxin 125 mcg (0.125 mg) Tab PO SCH (09:25)
--- NOTE | 2016-10-29 09:45 | PN ---
DATE: 10/29/2016 She is doing so much better this morning. She is more alert. She is talking. She is looking at me. She is breathing better. No chest pain, no shortness of breath and she is hungry a little bit. She is currently on aspirin, potassium, digoxin, Lasix 40 IV b.i.d., Sinemet and I added a 1-time dos e of vitamin K. PHYSICAL EXAMINATION: VITAL SIGNS: Temp 97.6, 74 pulse and it went up as high as 107 pulse, 135/94 blood pressure, it was 147/84, 18 respiratory rate. HEAD: Atraumatic, normocephalic. THROAT: Moist. NECK: Supple. HEART: Regular rate. LUNGS: Decreased breath sounds, but clear. ABDOMEN: Soft. EXTREMITIES: Very little edema today. Yesterday, was very swollen. Today, not so bad. GENERAL: She is very alert and oriented, smiling, asking me questions in Palestinian and Frisian. She i s happy again, back to her baseline. She has a 140 sodium, potassium 4.5, BUN 32, creatinine 1.2, GFR is 42, sugar is 102, calcium is 90, total bili is 2.3, AST is 43, alkaline phosphatase is 76, ALT is 37, total protein 7.2. She has a 5. 5 white count, 10 hemoglobin, 33.3 hematocrit with 141 platelets. The INR jumped from 3.7 to 4.8 wit hout any Coumadin, so I will give her 1 dose of vitamin K today subcutaneous. We will check her labs tomorrow, get her out of bed to chair, physical therapy, see what the cardiolo gist has to add to the picture and she hopefully can go home tomorrow. That is my plan at this time depending on what physical therapy says and cardiology says. She is here for acute congestive heart failure, debility. Scotty Ozuna DO cc: [id number] TT: 10/29/2016 08:13:07 Confirmation # [id number] Dictation # [id number] en 10/29/2016 08:44:21
--- NOTE | 2016-10-29 12:32 | CON ---
DATE: 10/29/2016 HISTORY OF PRESENT ILLNESS: The patient is an 89-year-old woman who presents with dyspnea and pedal edema. PAST MEDICAL HISTORY: Notable for severe pulmonary hypertension. She has had recurrent dyspneic epi sodes in the past. In addition, the patient suffers from hypertension. No chest pain noted. She is treated with Coumadin due to her chronic atrial fibrillation. SOCIAL HISTORY: No smoking history noted. REVIEW OF SYSTEMS: A 14-point was reviewed. Other than pedal edema and dyspnea, there is no other c ardiac symptomatology. PHYSICAL EXAMINATION: VITAL SIGNS: Blood pressure is 135/94, heart rate is atrial fibrillation in the 90s. NECK: Negative JVD. LUNGS: Decreased breath sounds bilaterally. HEART: Reveals S1, S2. EXTREMITIES: 1+ edema. EKG is atrial fibrillation with nonspecific ST-T changes. Troponin 0.11. Hemoglobin is 10. IMPRESSION: 1. Severe pulmonary hypertension. 2. Right-sided congestive heart failure. 3. Pedal edema. 4. Anemia. 5. Chronic atrial fibrillation, on Coumadin. I have tried to discuss the cause of her dyspnea with the patient's . The patient herself is confused and cannot understand all issues. According to the , no aggressive measures should b e taken including possible cardiac catheterization to qualify for anti-pulmonary hypertensive medicat ions. We will continue diuretic therapy. Linwood Almonte MD cc: [id number] TT: 10/29/2016 12:32:11 Confirmation # [id number] Dictation # [id number] en
[2016-10-30 06:10] VITALS: O2SAT 90
[2016-10-30 06:25] LABS: HEMATOCRIT 34.7 % (36.0-48.0); MEAN CELL VOLUME 88.5 fL (80.0-105.0); MEAN CORPUSCULAR HEMOGLOBIN 26.3 pg (25.0-35.0); MEAN CORPUSCULAR HGB CONC 29.7 g/dl (31.0-37.0); MEAN PLATELET VOLUME 9.6 fl (7.0-11.0); RED CELL DISTRIBUTION WIDTH 17.7 % (11.5-14.5)
[2016-10-30 06:34] LABS: INR 1.73 (0.93-1.08)
[2016-10-30 06:42] LABS: ALB/GLOB RATIO 1.1 (1.1-1.8); POTASSIUM 4.3 mmol/L (3.6-5.0); TOTAL PROTEIN 7.4 g/dL (5.8-8.3)
--- NOTE | 2016-10-30 08:51 | PN ---
DATE: 10/30/2016 The patient is in bed, without obvious dyspnea at rest. PHYSICAL EXAMINATION: VITAL SIGNS: The blood pressure is 146/73. Heart rate is atrial fibrillation, in the 70s. NECK: Negative JVD. LUNGS: Decreased breath sounds bilaterally. HEART: Reveals S1, S2. EXTREMITIES: Decreasing edema in lower extremities. LABORATORIES: Hemoglobin is 10.3. Chemistries: BUN and creatinine are 41 and 1.4. IMPRESSION: 1. Chronic atrial fibrillation. 2. Right-sided congestive heart failure. 3. Severe pulmonary hypertension. 4. Chronic atrial fibrillation. Given these findings, the Coumadin level is currently approaching therapeutic levels. Her atrial fibrillation heart rate is well controlled. Will continue diuretic therapy, however, the patient becoming somewhat prerenal. Will change her IV Lasix to p.o. Lasix. Linwood Almonte MD cc: [facility] TT: 10/30/2016 08:50:03 Confirmation # [id number] Dictation # [id number] mn
[2016-10-30] MEDS: Digoxin 125 mcg (0.125 mg) Tab PO SCH (09:33)
[2016-10-30] MEDS: Potassium Chloride 20 mEq ER Tab PO SCH (09:33)
[2016-10-30 09:34] VITALS: PULSE 64
--- NOTE | 2016-10-30 10:58 | DS ---
I see the patient resting comfortably in bed. She is much less swollen. She was diuresed very nicely. She is alert. She is talking. She is eating some. She is pleasantly confused. There is a little bit of blood in the Howell catheter. She is not used to having a catheter at home and I think that with the elevated INR, it was a little bit traumatic and that is why there is a little bit of blood, but will remove the catheter. Hemoglobin is still stable. PHYSICAL EXAMINATION: VITAL SIGNS: 97.6 temp, 76 pulse, 146/70 blood pressure, 19 respiratory rate, 94% O2 sat on room air. HEENT: Head is atraumatic, normocephalic. Throat is moist. NECK: Supple. HEART: Regular rate. LUNGS: Decreased breath sounds but clear. ABDOMEN: Soft. EXTREMITIES: No edema, much better than when she came in. She was 3 to 4+, now she is down to trace if any, and there is a little bit of Punch urine, which is probably from pulling on the catheter. Will remove the catheter today. INR was elevated, but it is coming down since we held the Coumadin. She is here for severe pulmonary hypertension, congestive heart failure, edema, anemia and AFib, which is chronic. MEDICATIONS: She is going to go home on potassium 20 daily, Lasix 40 twice a day, digoxin 0.125 daily, Sinemet, carbidopa 25/100 one tablet 3 times a day, and instead of being on Coumadin 1 mg a day, she will go on 0.5 mg a day. LABORATORY DATA: Today are 143 sodium, potassium 4.3, BUN 41, creatinine 1.4. GFR is 35. Sugar is 102, calcium is 9, total bili is 3, AST is 4, ALT is 28, alkaline phosphatase is 75, total protein 7.4. White count 7, hemoglobin 10.3, hematocrit 24.7, platelets 145. INR is down to 1.73, it was as high as 4.81. I will restart the Coumadin at 0.5 mg as opposed to 1 mg. Liver enzymes are a little bit elevated. We will follow them on the outpatient. I will do blood tests in a week on her. The will call for a house call or bring her to the office. I think as far as her congestive heart failure and the pulmonary hypertension, that improved greatly and will see her on the outside. It is better to get her out of the hospital than keep her here. Scotty Ozuna DO cc: [id number] TT: 10/30/2016 10:58:22 ping AYALA
[2016-10-30 12:20] VITALS: BP 132/75; PULSE 103; RESP 20; TEMP 97.8
== END 2016-10-30 16:39 | disposition home or self-care (01) ==
LOC: ED 08:31 → INTOOBSV 11:39 → ERH 11:39 → 2RSO 14:24 → 2RNO 20:23
PROVIDERS: ADMIT Family Medicine; ATTEND Family Medicine
DX: I11.0 Hypertensive heart disease with heart failure (principal); I50.9 Heart failure, unspecified; I27.2 Other secondary pulmonary hypertension; G20 Parkinson's disease; F02.80 Dementia in other diseases classified elsewhere, unspecified severity, without behavioral disturbance, psychotic disturbance, mood disturbance, and anxiety; I48.2 Chronic atrial fibrillation; Z79.01 Long term (current) use of anticoagulants; D64.9 Anemia, unspecified; R53.81 Other malaise; Z99.3 Dependence on wheelchair; Z82.49 Family history of ischemic heart disease and other diseases of the circulatory system
CPT/HCPCS: 36415; 71010; 80053; 82550; 83615; 83880; 84484; 85025; 85027; 85610; 85730; 93005; 93970; 96374; 99285; G0378; J1940; J3430

== ENCOUNTER 2017-03-04 20:50 | Observation (INO) | payer MEDICARE, OTHER ==
[2017-03-04 20:51] VITALS: PULSE 64
[2017-03-04 21:15] VITALS: BMI 16.7
--- NOTE | 2017-03-04 21:45 | ED PDOC ---
Arrival/HPI <Dragan Farrell - Last Filed: 03/05/17 01:06> - General Historian: Patient, Family (son), Caregiver (son) <Jovany Sanchez - Last Filed: 03/06/17 21:43> - General Chief Complaint: Shortness Of Breath Time Seen by Provider: 03/04/17 21:26 - History of Present Illness Narrative History of Present Illness (Text): 03/04/17 21:45 89 year old with PMH of hx afib (on coumadin), CHF, Parkinson's disease presenting with reports of shortness of breath. The history was primarily given by her son who is the primary animal care worker. Patient begin to complain of SOB around 8:30pm while sitting on the couch. The patient had been feeling normal all day prior to the episode of SOB. Patient has a hx of CHF so patient's son wanted to make sure there was nothing more urgent occurring at this time. Patient states she has no other complaints other than SOB at this time. Denies f /c, rhinorrhea, sore throat, cough, cp, n/v, d/c, numbness or tingling. (Jovany Sanchez) Past Medical History - Provider Review Nursing Documentation Reviewed: Yes - Past History Past History: Non-Contributing - Infectious Disease Hx of Infectious Diseases: None - Tetanus Immunization Tetanus Immunization: Unknown - Cardiac Hx Cardiac Disorders: Yes Hx Cardiac Arrhythmia: Yes (AFIB) Hx Congestive Heart Failure: Yes - Pulmonary Hx Respiratory Disorders: No - Neurological Hx Neurological Disorder: Yes Hx Parkinson's Disease: Yes (TREMORS) - HEENT Hx HEENT Disorder: Yes Hx Cataracts: Yes (had surgery 11 years ago (bilaterally)) - Renal Hx Renal Disorder: No - Endocrine/Metabolic Hx Endocrine Disorders: No - Hematological/Oncological Hx Blood Disorders: No - Integumentary Hx Dermatological Disorder: Yes (BILATERAL LE EDEMA +2WITH SPIDER VEINS) - Musculoskeletal/Rheumatological Hx Musculoskeletal Disorders: Yes Hx Falls: Yes Hx Fractures: Yes (WRIST FX) Hx Unsteady Gait: Yes (WHEELCHAIR) - Gastrointestinal Hx Gastrointestinal Disorders: No - Genitourinary/Gynecological Hx Genitourinary Disorders: Yes Hx Incontinence: Yes - Psychiatric Hx Psychophysiologic Disorder: No Hx Depression: No Hx Emotional Abuse: No Hx Physical Abuse: No Hx Substance Use: No - Anesthesia Hx Anesthesia: No - Suicidal Assessment Feels Threatened In Home Enviroment: No <Jovany Sanchez - Last Filed: 03/06/17 21:43> Family/Social History - Physician Review Nursing Documentation Reviewed: Yes Family/Social History: Unknown Family HX Smoking Status: Never Smoked Hx Alcohol Use: No Hx Substance Use: No Hx Substance Use Treatment: No <Jovany Sanchez - Last Filed: 03/06/17 21:43> Allergies/Home Meds <Dragan Farrell - Last Filed: 03/05/17 01:06> <Jovany Sanchez - Last Filed: 03/06/17 21:43> Allergies/Adverse Reactions: Allergies No Known Allergies Allergy (Verified 03/04/17 21:15) Home Medications: Home Meds Medication Instructions Recorded Confirmed Furosemide [Lasix] 40 mg PO BID 06/05/14 03/04/17 Digoxin 0.125 mcg PO DAILY 04/28/15 03/04/17 Warfarin [Coumadin] 0.5 mg PO 1800 05/28/15 03/04/17 Carbidopa/Levodopa 1 tab PO TID 04/17/16 03/04/17 [Carbidopa-Levodopa 25-100 Tab] Potassium Chloride [Klor-Con M20] 20 meq PO DAILY 03/04/17 03/04/17 Review of Systems - Physician Review All systems were reviewed & negative as marked: Yes - Review of Systems Constitutional: Normal. absent: Fatigue, Fevers Eyes: Normal. absent: Vision Changes ENT: Normal. absent: Sore Throat, Rhinorrhea Respiratory: SOB Cardiovascular: Normal. absent: Chest Pain, Palpitations, Edema, Syncope Gastrointestinal: Normal. absent: Abdominal Pain, Constipation, Diarrhea, Nausea, Vomiting Genitourinary Female: Normal Musculoskeletal: Normal Skin: Normal. absent: Rash Neurological: Normal Psychiatric: Normal <Jovany Sanchez - Last Filed: 03/06/17 21:43> Physical Exam Vital Signs Reviewed: Yes Temperature: Other Blood Pressure: Hypotensive Pulse: Bradycardic Respiratory Rate: Normal Appearance: Positive for: Non-Toxic, Comfortable, Cachectic Pain Distress: None Mental Status: Positive for: Alert and Oriented X 3 - Systems Exam Head: Present: Atraumatic, Normocephalic Pupils: Present: PERRL Extroacular Muscles: Present: EOMI Conjunctiva: Present: Normal Mouth: Present: Moist Mucous Membranes Nose (External): Present: Atraumatic, Abrasion Nose (Internal): Present: Normal Inspection Neck: Present: Normal Range of Motion. No: Meningeal Signs, MIDLINE TENDERNESS , JVD, Lymphadenopathy Respiratory/Chest: Present: Clear to Auscultation. No: Respiratory Distress, Accessory Muscle Use, Wheezes, Rales, Rhonchi, Tachypneic Cardiovascular: Present: Normal S1, S2, Irregular Rhythm (hx of afib), Peripheal Pulses Present Abdomen: Present: Tenderness, Normal Bowel Sounds. No: Distention, Peritoneal Signs, Guarding Back: Present: Normal Inspection. No: Midline Tenderness, Paraspinal Tenderness Upper Extremity: Present: Normal Inspection, NORMAL PULSES. No: Edema Lower Extremity: Present: Normal Inspection, NORMAL PULSES. No: Edema, CALF TENDERNESS Neurological: Present: GCS=15 Lymphatic: No: Cervical Adenopathy Psychiatric: Present: Alert, Lethargic (asleep during majority of exam) <Jovany Sanchez - Last Filed: 03/06/17 21:43> Vital Signs Temp Pulse Resp BP Pulse Ox 03/05/17 02:48 17 96 03/05/17 02:38 51 L 17 118/79 97 03/05/17 00:57 50 L 17 129/88 18 L 03/04/17 21:50 16 99 03/04/17 21:27 97.6 F 74 15 105/49 L 96 03/04/17 21:15 51 L 16 105/49 L 95 Medical Decision Making <Dragan Farrell - Last Filed: 03/05/17 01:06> - Lab Interpretations I have reviewed the lab results: Yes <Jovany Sanchez - Last Filed: 03/06/17 21:43> ED Course and Treatment: Patient seen and evaluated with resident. Agree with HPI, clinical findings, plan and treatment. Patient is a 89 year old female, who presents to the emergency department complaining of shortness of breath since 8:30pm today. Case discussed with who is aware and agrees with the plan to observe patient at telemetry for CHF. Accepts patient under his service with Dr. Almonte on cardiology consult. (Dragan Farrell) 03/04/17 23:39 SOB - hx of CHF - CXR - cardiomegaly, otherwise normal - EKG - Afib with slow ventricular response @ 53bpm, Q waves in Leads I, II, III, aVL, aVF, V3-V6, unchanged from previous EKG - Prior ECHO on 09/20/16 - normal LVEF >50%, RV systolic function severely reduced, dilated R atrium, severe TR, severe Pulm HTN, mild AR. - CBC - WNL - baseline anemia 10.1 - CMP - WNL - Trop - 0.06 - baseline - BNP - 2780 - INR - sub-therapeutic @ 1.14 DISPO: Admit to telemetry for CHF exacerbation. Patient is admitted to Dr. Ozuna's service. (Jovany Sanchez) - Lab Interpretations Lab Results: 03/04/17 22:35 03/04/17 22:35 Lab Results 03/04/17 22:35: PT 12.3 H, INR 1.14 H, APTT 27.2 03/04/17 22:35: WBC 5.0 D, RBC 3.34 L, Hgb 10.1 L, Hct 31.9 L, MCV 95.5, MCH 30.2, MCHC 31.7, RDW 17.9 H, Plt Count 187, MPV 9.6, Gran % 53.1, Lymph % (Auto ) 28.2, Amador % (Auto) 16.7 H, Eos % (Auto) 1.4 L, Baso % (Auto) 0.6, Gran # 2.63 , Lymph # 1.4, Amador # 0.8 H, Eos # 0.1, Baso # 0.03 03/04/17 22:35: Sodium 138, Potassium 4.3, Chloride 99, Carbon Dioxide 30, Anion Gap 13, BUN 20, Creatinine 0.9, Est GFR ( Amer) > 60, Est GFR (Non- Af Amer) 59, Random Glucose 72, Calcium 8.9, Total Bilirubin 1.6 H, AST 27, ALT 17, Alkaline Phosphatase 69, Lactate Dehydrogenase 566, Total Creatine Kinase 106, Troponin I 0.06 D, NT-Pro-B Natriuret Pep 2780 H, Total Protein 6.4, Albumin 3.7, Globulin 2.7, Albumin/Globulin Ratio 1.4 - RAD Interpretation Radiology Orders: 03/04/17 21:48 CXR [CHEST PORTABLE] [RAD] Stat - Medication Orders Current Medication Orders: Discontinued Medications Carbidopa/Levodopa (Sinemet) 1 tab PO TID [facility] Last Admin: 03/05/17 17:43 Dose: 1 tab Digoxin (Lanoxin) 0.125 mg PO 1400 [facility] Last Admin: 03/05/17 14:24 Dose: Furosemide (Lasix) 40 mg IVP STAT STA Stop: 03/05/17 00:13 Last Admin: 03/05/17 00:57 Dose: 40 mg Furosemide (Lasix) 40 mg IVP Q12 [facility] Last Admin: 03/05/17 22:02 Dose: 40 mg Potassium Chloride (K-Dur 20 Meq Er Tab) 20 meq PO DAILY [facility] Last Admin: 03/05/17 09:11 Dose: 20 meq Warfarin Sodium (Coumadin) 0.5 mg PO 1800 [facility] PRN Reason: Protocol Warfarin Sodium (Coumadin) 0.5 mg PO 1800 [facility] Last Admin: 03/05/17 17:43 Dose: 0.5 mg Warfarin Sodium (Coumadin) 1 mg PO 1800 [facility] - PA / PLASTICS FABRICATOR / Resident Statement / has reviewed & agrees with the documentation as recorded. / has examined the patient and agrees with the treatment plan. <Dragan Farrell - Last Filed: 03/05/17 01:06> Disposition/Present on Arrival <Dragan Farrell - Last Filed: 03/05/17 01:06> - Present on Arrival Any Indicators Present on Arrival: No History of DVT/PE: No History of Uncontrolled Diabetes: No Urinary Catheter: No History of Decub. Ulcer: No History Surgical Site Infection Following: None - Disposition Have Diagnosis and Disposition been Completed?: Yes Disposition Time: 01:10 Patient Plan: Admission <Jovany Sanchez - Last Filed: 03/06/17 21:43> - Disposition Diagnosis: CHF exacerbation Disposition: HOSPITALIZED Condition: FAIR
[2017-03-04 22:59] LABS: BASO # 0.03 K/mm3 (0.0-2.0); BASO % 0.6 % (0.0-3.0); EOS # 0.1 (0.0-0.7); EOS % 1.4 % (1.5-5.0); GRAN # 2.63 (1.4-6.5); GRAN % 53.1 % (50.0-68.0); HEMATOCRIT 31.9 % (36.0-48.0); LYMPH # 1.4 (1.2-3.4); LYMPH % 28.2 % (22.0-35.0); MEAN CELL VOLUME 95.5 fl (80.0-105.0); MEAN CORPUSCULAR HEMOGLOBIN 30.2 pg (25.0-35.0); MEAN CORPUSCULAR HGB CONC 31.7 g/dl (31.0-37.0); MEAN PLATELET VOLUME 9.6 fl (7.0-11.0); MONO # 0.8 (0.1-0.6); MONO % 16.7 % (1.0-6.0); RED CELL DISTRIBUTION WIDTH 17.9 % (11.5-14.5)
[2017-03-04 23:07] LABS: INR 1.14 (0.93-1.08); PARTIAL THROMBOPLASTIN TIME 27.2 Seconds (23.7-30.8)
[2017-03-04 23:13] LABS: ALB/GLOB RATIO 1.4 (1.1-1.8); ALKALINE PHOSPHATASE 69 U/L (38-126); ALT/SGPT 17 U/L (7-56); AST/SGOT 27 U/L (14-36); BILIRUBIN,TOTAL 1.6 mg/dL (0.2-1.3); BLOOD UREA NITROGEN 20 mg/dL (7-21); CALCIUM 8.9 mg/dL (8.4-10.5); CARBON DIOXIDE 30 mmol/L (21-33); CHLORIDE 99 mmol/L (98-107); GFR AFRICAN-AMERICAN > 60; GLUCOSE,RANDOM 72 mg/dL (70-110); POTASSIUM 4.3 mmol/L (3.6-5.0); SODIUM 138 mmol/L (132-148); TOTAL PROTEIN 6.4 g/dL (5.8-8.3)
[2017-03-04 23:25] LABS: TROPONIN I 0.06 ng/mL
--- NOTE | 2017-03-05 09:26 | RAD ---
HISTORY: sob COMPARISON: 10/28/2016 FINDINGS: LUNGS: No active pulmonary disease. PLEURA: No significant pleural effusion identified, no pneumothorax apparent. CARDIOVASCULAR: There is severe cardiomegaly. There is no evidence of CHF. OSSEOUS STRUCTURES: No significant abnormalities. VISUALIZED UPPER ABDOMEN: Normal. OTHER FINDINGS: None. IMPRESSION: Severe cardiomegaly unchanged. No acute findings
[2017-03-05] MEDS ORDERED: Digoxin 125 mcg (0.125 mg) Tab PO SCH ×2 (10:00→14:00)
[2017-03-05] MEDS ORDERED: Potassium Chloride 20 mEq ER Tab PO SCH (10:00)
--- NOTE | 2017-03-05 15:18 | CON ---
DATE: 03/05/2017 HISTORY OF PRESENT ILLNESS: The patient is a 89-year-old woman who presents with dyspnea. Her the past medical history includes history of atrial fibrillation. Her last cardiac evaluation was earlier this year where her ejection fraction was found to be 74%. She was noted to have severe pulmonary hypertension with mild aortic insufficiency. She also suffers from atrial fibrillation in which she has been treated with Coumadin. Her noncardiac issues include Alzheimer's. Currently, the patient is not short of breath and is eating without issues. Social history and review of systems are not available. PHYSICAL EXAMINATION: VITAL SIGNS: Blood pressure is 146/70, heart rate in the 50s, atrial fibrillation. NECK: Negative JVD. LUNGS: Decreased breath sounds bilaterally. HEART: Reveal S1 and S2 with 2/6 systolic ejection murmur. EXTREMITIES: Without change. EKG shows atrial fibrillation with nonspecific ST-T changes. The troponin is 0.06 which is unchanged from her previous. BUN and creatinine unremarkable. The hemoglobin is 10.1. ASSESSMENT: 1. Dyspnea. 2. Mild acute systolic congestive heart failure. 3. Severe pulmonary hypertension. 4. Anemia. 5. Dementia. 6. Atrial fibrillation. PLAN: Given these findings, the patient is hemodynamically better on IV Lasix. Her shortness of breath is predominantly from her severe pulmonary hypertension. Linwood Almonte MD
--- NOTE | 2017-03-05 15:40 | PN ---
DATE: SUBJECTIVE: I know Vero well from house calls and also office visits; actually I saw her yesterday in my office. She looked fantastic, the best I have seen her in long time. Her takes good care of her. I do believe she is getting Lasix. She is an 89-year-old female, who presented with shortness of breath while sitting on a couch. Otherwise, she ate breakfast and was doing fell. I took her to the emergency room and she ended up being in the intensive care unit. PAST MEDICAL HISTORY: She has a past medical history of atrial fibrillation, CHF, and Parkinson's disease. She is comfortable right now in bed in the intensive care unit. She does have tremors. She had cataract surgeries. She gets edema and spider veins, but no edema yesterday and no edema this morning from the Lasix. She does have a history of falls. She has picked up going from bed to wheelchair. She had a fracture of the wrist. She is mostly wheelchair-bound, but can walk a little bit with help. She is incontinent. FAMILY HISTORY: There is hypertension in the family. SOCIAL HISTORY: Never smoked. No alcohol. No drugs. ALLERGIES: NO KNOWN DRUG ALLERGIES. MEDICATIONS: She takes Lasix, digoxin, Coumadin, Sinemet, and potassium. REVIEW OF SYSTEMS: No acute vision or hearing changes. No sore throat. No neck pain. No chest pain or palpitations. No abdominal pain. No nausea, vomiting, constipation, or diarrhea. There was a questionable shortness of breath. Right now she is better. No abdominal pain. Skin for the most part is intact, it is very, weak, thin. No edema at this time. She is alert, smiling, and that is her baseline. She does speak, but it is very slow, it is hard to get started. PHYSICAL EXAMINATION: GENERAL: She is alert, talking, back to her baseline. No shortness of breath. No chest pain. VITAL SIGNS: She has a 97.6 temperature, 58 pulse irregular, 131/59 blood pressure, 16 respiratory rate, and 94% O2 sat on room air. HEENT: Head is atraumatic, normocephalic. Pupils are equal and reactive to light and accommodation. Extraocular muscles are intact. Throat is moist. NECK: Supple. HEART: Irregular rate with a 2/6 systolic ejection murmur. LUNGS: Decreased breath sounds bilaterally, but clear to auscultation. No wheezes, no rhonchi, no rales. ABDOMEN: Soft and nontender. Positive bowel sounds. EXTREMITIES: With no edema, which is very good for her. NEUROLOGIC: GCS of 15. Cranial nerves grossly intact II through XII. She is alert and smiling and that is her baseline, talks a little bit of [place] with the . LABORATORY DATA: She had a blood test done, 5 white count, 10.1 hemoglobin, 31.9 hematocrit with 187 platelets. INR is 1.14, we will give her the Coumadin. She has 138 sodium, potassium 4.3, BUN 20, creatinine 0.9, GFR is greater than 60, sugars 69, and calcium 8.9. Total bilirubin is 1.6. AST is 27, ALT 17, alkaline phosphatase 69, total protein is 6.4. BNP was high at 2780. Troponin I was 0.16 and total protein 6.4. PLAN: She has a consult with Dr. Almonte of Cardiology. She will be on Lasix 40 mg IV b.i.d. I am hoping that by tomorrow she will be able to be discharged and I might change it to an observation tomorrow, if he is very well and also physical therapy will be involved. She is here for shortness of breath most probably, CHF, shortness of breath on top of Parkinson's, atrial fibrillation, and also she is 89 years of age. Scotty Ozuna DO MTDD
--- NOTE | 2017-03-05 17:55 | CARD ---
APPROVED REPORT EKG Measurement Heart [id number] <Conclusion> Atrial fibrillation with slow ventricular response Possible Right ventricular hypertrophy Inferior infarct, age undetermined Anterolateral infarct, age undetermined Abnormal ECG
[2017-03-06 06:53] VITALS: BP 131/42; PULSE 57; RESP 20; TEMP 98.3; O2SAT 94
[2017-03-06 07:21] LABS: INR 1.19 (0.93-1.08)
[2017-03-06 07:23] LABS: HEMATOCRIT 37.2 % (36.0-48.0); MEAN CELL VOLUME 95.9 fl (80.0-105.0); MEAN CORPUSCULAR HEMOGLOBIN 30.4 pg (25.0-35.0); MEAN CORPUSCULAR HGB CONC 31.7 g/dl (31.0-37.0); MEAN PLATELET VOLUME 9.4 fl (7.0-11.0); RED CELL DISTRIBUTION WIDTH 17.6 % (11.5-14.5); WHITE BLOOD COUNT 5.8 10^3/ul (4.5-11.0)
[2017-03-06 07:40] LABS: ALB/GLOB RATIO 1.3 (1.1-1.8); ALKALINE PHOSPHATASE 66 U/L (38-126); ALT/SGPT 23 U/L (7-56); AST/SGOT 26 U/L (14-36); BILIRUBIN,TOTAL 1.9 mg/dL (0.2-1.3); BLOOD UREA NITROGEN 21 mg/dL (7-21); CALCIUM 8.9 mg/dL (8.4-10.5); CARBON DIOXIDE 35 mmol/L (21-33); CHLORIDE 100 mmol/L (98-107); GFR AFRICAN-AMERICAN > 60; GLUCOSE,RANDOM 96 mg/dL (70-110); POTASSIUM 3.5 mmol/L (3.6-5.0); SODIUM 143 mmol/L (132-148)
--- NOTE | 2017-03-06 13:27 | DS ---
HISTORY OF PRESENT ILLNESS: She is doing very well for the past 24 hours, and she is no short of breath, no chest pain, no abdominal pain. She is awake. She is eating. Seen with family this morning in the intensive care unit, and she will be discharged today. She is on observation. She is on Coumadin, potassium, Lanoxin, Lasix and Sinemet. She will go on the same medications. PHYSICAL EXAMINATION: VITAL SIGNS: 98.3 temperature, 67 pulse, 131/42 blood pressure, 20 respiratory rate, 94% to 96% O2 saturation on room air. HEENT: Head is atraumatic and normocephalic. Throat is moist. GENERAL: She is alert, talking to me, pleasant, smiling, no complaints. NECK: Supple. HEART: Regular rate. LUNGS: Decreased breath sounds, but clear to auscultation. ABDOMEN: Soft. EXTREMITIES: No edema. LABORATORY DATA: Today, she has a 5.8 white count, 11.8 hemoglobin, 37.2 hematocrit, 202 platelets. INR is 1.19, we increased the Coumadin. We will follow that in the outpatient. Sodium is 143, potassium is 3.5, potassium today, BUN 21, creatinine 0.9. GFR is 69. Sugar is 96, calcium is 8.9, total bili is 1.98, AST is 26, ALT is 23, alkaline phosphatase is 56, total protein is 7. MEDICATIONS: Coumadin 0.5, I will increase it to 1 mg a day. She will be on the potassium, digoxin, Lasix, and Sinemet. I will write prescriptions for her. She will be followed up in the outpatient in the office at a week. She was here for dyspnea, mild congestive heart failure, severe pulmonary hypertension and anemia. Scotty Ozuna DO MTDLow
== END 2017-03-06 11:05 | disposition home or self-care (01) ==
LOC: ED 20:50 → ERH 03-05 01:03 → CCU 03-05 03:36
PROVIDERS: ADMIT Family Medicine; ATTEND Family Medicine
DX: I50.21 Acute systolic (congestive) heart failure (principal); I27.2 Other secondary pulmonary hypertension; D64.9 Anemia, unspecified; I48.91 Unspecified atrial fibrillation; G20 Parkinson's disease; G30.9 Alzheimer's disease, unspecified; F02.80 Dementia in other diseases classified elsewhere, unspecified severity, without behavioral disturbance, psychotic disturbance, mood disturbance, and anxiety; I35.1 Nonrheumatic aortic (valve) insufficiency; R32 Unspecified urinary incontinence; Z91.81 History of falling; Z79.01 Long term (current) use of anticoagulants; Z99.3 Dependence on wheelchair
CPT/HCPCS: 71010; 80053; 80162; 82550; 83615; 83880; 84484; 85025; 85027; 85610; 85730; 87081; 93005; 96374; 99285; G0378; J1940